=== PATIENT | female | born 1990 | race African-American/Black ===

== ENCOUNTER 2017-04-26 23:25 | Emergency (ER) | payer OTHER ==
[2017-04-26] MEDS ORDERED: DICYCLOMINE HCL 10 MG CAPSULE PO ONE (23:50)
--- NOTE | 2017-04-26 23:50 | PDOC ---
History of Present Illness - History of Present Illness Initial Comments: 04/26/17 23:53 The patient is a 27 year old female, with a significant past medical history of asthma, who presents to the emergency department with sudden onset of diffuse abdominal pain today. She reports the pain was 10/10 just prior to her ED arrival. She reports the pain was so bad I could not walk. She states the pain now is 2/10. She denies sick contacts. She reports eating all day without any complaints. LMP: 04/10/17 She denies chest pain, shortness of breath, headache and dizziness. She denies fever, chills, nausea, vomit, diarrhea and constipation. She denies dysuria, frequency, urgency and hematuria. Allergies: NKDA Past surgical history: umbilical hernia repair, ectopic Social history: denies toxic habits PCP - Dr. Maritza Palencia <Jyothi Bashir - Last Filed: 04/26/17 23:53> - General History Source: Patient <Alvin Lerner - Last Filed: 04/27/17 19:30> - General Chief Complaint: Pain, Acute Stated Complaint: ABDOMINAL PAIN Time Seen by Provider: 04/26/17 23:47 Past History <Jyothi Bashir - Last Filed: 04/26/17 23:53> - Past Medical History Asthma: Yes - Suicide/Smoking/Psychosocial Hx Smoking History: Never smoked Have you smoked in the past 12 months: No Number of Cigarettes Smoked Daily: 4 Information on smoking cessation initiated: No Hx Alcohol Use: No Drug/Substance Use Hx: No Substance Use Type: None <Alvin Lerner - Last Filed: 04/27/17 19:30> - Past Medical History Allergies/Adverse Reactions: Allergies Allergy/AdvReac Type Severity Reaction Status Date / Time No Known Allergies Allergy Verified 04/26/17 23:30 Home Medications: Ambulatory Orders NK [No Known Home Medication] 04/26/17 Review of Systems - Review of Systems Able to Perform ROS?: Yes Comments:: 04/26/17 23:54 CONSTITUTIONAL: Absent: fever, chills, diaphoresis, generalized weakness, malaise, loss of appetite HEENT: Absent: rhinorrhea, nasal congestion, throat pain, throat swelling, difficulty swallowing, mouth swelling, ear pain, eye pain, visual Changes CARDIOVASCULAR: Absent: chest pain, syncope, palpitations, irregular heart rate, lightheadedness , peripheral edema RESPIRATORY: Absent: cough, shortness of breath, dyspnea with exertion, orthopnea, wheezing, stridor, hemoptysis GASTROINTESTINAL: (+) abdominal pain, Absent: abdominal distension, nausea, vomiting, diarrhea, constipation, melena, hematochezia GENITOURINARY: Absent: dysuria, frequency, urgency, hesitancy, hematuria, flank pain, genital pain MUSCULOSKELETAL: Absent: myalgia, arthralgia, joint swelling SKIN: Absent: rash, itching, pallor HEMATOLOGIC/IMMUNOLOGIC: Absent: easy bleeding, easy bruising, lymphadenopathy, frequent infections ENDOCRINE: Absent: unexplained weight gain, unexplained weight loss, heat intolerance, cold intolerance NEUROLOGIC: Absent: headache, focal weakness or paresthesias, dizziness, unsteady gait, seizure, mental status changes, bladder or bowel incontinence PSYCHIATRIC: Absent: anxiety, depression, suicidal or homicidal ideation, hallucinations. <Jyothi Bashir - Last Filed: 04/26/17 23:53> *Physical Exam - Vital Signs Last Vital Signs Temp Pulse Resp BP Pulse Ox 97.6 F 64 18 128/78 98 04/26/17 23:30 04/26/17 23:30 04/26/17 23:30 04/26/17 23:30 04/26/17 23:30 - Physical Exam Comments: 04/26/17 23:54 GENERAL: Well developed, well nourished. Awake and alert. No acute distress. HEENT: Normocephalic, atraumatic. PERRLA, EOMI. No conjunctival pallor. Sclera are non- icteric. Moist mucous membranes. Oropharynx is clear. NECK: Supple. Full ROM. No JVD. Carotid pulses 2+ and symmetric, without bruits. No thyromegaly. No lymphadenopathy. CARDIOVASCULAR: Regular rate and rhythm. No murmurs, rubs, or gallops. Distal pulses are 2+ and symmetric. PULMONARY: No evidence of respiratory distress. Lungs clear to auscultation bilaterally. No wheezing, rales or rhonchi. ABDOMINAL: Soft. Non-tender. Non-distended. No rebound or guarding. No organomegaly. Normoactive bowel sounds. MUSCULOSKELETAL Normal range of motion at all joints. No bony deformities or tenderness. No CVA tenderness. EXTREMITIES: No cyanosis. No clubbing. No edema. No calf tenderness. SKIN: Warm and dry. Normal capillary refill. No rashes. No jaundice. NEUROLOGICAL: Alert, awake, appropriate. Cranial nerves 2-12 intact. Normoreflexic in the upper and lower extremities. Normal speech. Toes are down-going bilaterally. Gait is normal without ataxia. PSYCHIATRIC: Cooperative. Good eye contact. Appropriate mood and affect. <Jyothi Bashir - Last Filed: 04/26/17 23:53> - Vital Signs Last Vital Signs Temp Pulse Resp BP Pulse Ox 97.6 F 64 18 128/78 98 04/26/17 23:30 04/26/17 23:30 04/26/17 23:30 04/26/17 23:30 04/26/17 23:30 <Alvin Lerner - Last Filed: 04/27/17 19:30> Medical Decision Making - Medical Decision Making 04/27/17 19:29 Dr. Lerner: The scribe's documentation has been prepared under my direction and personally reviewed by me in its entirery. I confirm that the note above accurately reflects all work, treatment, procedures, and medical decision making performed by me. <Alvin Lerner - Last Filed: 04/27/17 19:30> *DC/Admit/Observation/Transfer - Attestations Scribe Attestion: 04/26/17 23:55 Documentation prepared by Jyothi Bashir, acting as rn medical surgical for Alvin Lerner DO <Jyothi Bashir - Last Filed: 04/26/17 23:53> - Discharge Dispostion Admit: No <Alvin Lerner - Last Filed: 04/27/17 19:30> Diagnosis at time of Disposition: Abdominal pain Qualifiers: Abdominal location: generalized Qualified Code(s): R10.84 - Generalized abdominal pain - Discharge Dispostion Disposition: HOME Condition at time of disposition: Stable - Referrals Referrals: Maritza Palencia MD [Primary Care Provider] - Savage Oreilly MD [Staff Physician] - - Patient Instructions Printed Discharge Instructions: DI for Abdominal Pain-Adult - Post Discharge Activity
[2017-04-26] MEDS ORDERED: DICYCLOMINE HCL 10 MG CAPSULE ONE (23:56)
[2017-04-27 00:19] VITALS: BP 128/78; PULSE 64; TEMP 97.6; BMI 32.5
== END 2017-04-27 01:51 | disposition home or self-care (01) ==
LOC: JER 23:25
DX: R10.84 Generalized abdominal pain (principal)
CPT/HCPCS: 99282-25

== ENCOUNTER 2018-05-02 05:11 | Day surgery (SDC) | payer OTHER ==
[2018-04-30 15:06] VITALS: BMI 34.8
[2018-05-02] MEDS ORDERED: ONDANSETRON 4 MG/2 ML VIAL IVPUSH PRN (10:09)
[2018-05-02] MEDS ORDERED: PROMETHAZINE HCL 25 MG/1 ML VIAL IVPUSH PRN (10:09)
[2018-05-02] MEDS ORDERED: LACTATED RINGERS SOLUTION 1,000 ML IV SCH (10:15)
--- NOTE | 2018-05-02 10:19 | HP ---
History & Physical Update - History History: No Change - Physical Physical: No Change - Assessment Assessment: No Change - Plan Plan: No Change (Dermoid cyst, for laparoscopic ovarian cystectomy, agree with H &P from 04/30/2018)
[2018-05-02] MEDS ORDERED: IBUPROFEN 800 MG/8 ML IJ IVPB PRN (10:21)
[2018-05-02] MEDS ORDERED: ACETAMINOPHEN 325 MG TABLET (FP) PO PRN (10:21)
[2018-05-02] MEDS ORDERED: MIDAZOLAM HCL 2 MG/2 ML SINGLE DOSE VIAL ONE ×2 (10:51)
[2018-05-02] MEDS ORDERED: BUPIVACAINE HCL/PF 0.5% (5MG/ML) 10 ML VIAL ONE (10:52)
[2018-05-02] MEDS ORDERED: PROPOFOL 20 ML ONE (10:58)
[2018-05-02] MEDS ORDERED: ROCURONIUM BROMIDE 50 MG/5 ML VIAL ONE (11:00)
[2018-05-02] MEDS ORDERED: BUPIVACAINE HCL/PF (5 MG/ML) 30 ML VIAL IJ ONE ×2 (11:48)
[2018-05-02] MEDS ORDERED: NEOSTIGMINE METHYLSULFATE 0.5 MG/ML - 10 ML MDV ONE (11:54)
[2018-05-02] MEDS ORDERED: ACETAMINOPHEN 1000 MG/100 ML VIAL (NON FORMULARY) IVPB ONE (12:00)
--- NOTE | 2018-05-02 12:12 | SURG ---
Surgery Planting Machine Crewman Note Planting Machine Crewman: Joaquin Luna PA-C Date of Service: 05/02/18 Diagnosis: Left ovarian dermoid cyst Procedure: Laprscopic Left ovarian cystectomy I was present for the entirety of the operative procedure. For further detail, please refer to operative report.
[2018-05-02] MEDS ORDERED: ACETAMINOPHEN INJECTION 100 ML IVPB ONE (12:22)
--- NOTE | 2018-05-02 12:34 | OP ---
Operative Note - Note: Operative Date: 05/02/18 (dictation [id number]) Pre-Operative Diagnosis: left dermoid cyst Operation: laparoscopic left ovarian cystectomy Findings: left ovarian cyst, normal right ovary Post-Operative Diagnosis: Same as Pre-op Surgeon: Cherie Hutchins Skein Bander: Joaquin Luna Anesthesiologist/TOOLROOM KEEPER: Dia Colmenares MD Anesthesia: General Specimens Removed: left ovarian cyst Estimated Blood Loss (mls): 10 Operative Report Dictated: Yes
[2018-05-02 13:51] VITALS: BP 108/68; PULSE 60; TEMP 97.4
--- NOTE | 2018-05-02 14:04 | OP ---
DATE OF OPERATION: 05/02/2018 PREOPERATIVE DIAGNOSIS: Left dermoid cyst. POSTOPERATIVE DIAGNOSIS: Left dermoid cyst. PROCEDURE: Laparoscopic ovarian cystectomy. SURGEON: Cherie Hutchins MD TRAVELER CHANGER: PHOEBE Robin ANESTHESIA: General. ANESTHESIOLOGIST: Dia Colmenares MD ESTIMATED BLOOD LOSS: 10 mL. SPECIMENS REMOVED: Left dermoid cyst. COMPLICATIONS: None. COUNTS: Sponge, needle, and instrument counts correct. DISPOSITION: Stable to PACU. BRIEF HISTORY AND PROCEDURE: Patient is a 28-year-old female having been seen in the office and diagnosed with a left-sided dermoid cyst. The patient was counseled on her options and elected to undergo resection. She signed consents for laparoscopic ovarian cystectomy in the office and was admitted to [facility] on May 02, 2018, where consents were reconfirmed. She was then taken back to the operating room, where she was given general anesthesia and placed in the dorsal lithotomy position. A Stone catheter was placed under sterile conditions. She was prepped and draped in the usual standard fashion, and a hard time-out was performed. A 5-mm skin incision was created in the umbilicus, and a Veress needle was placed intraabdominally, and the abdomen insufflated with CO2 gas. The camera was then inserted using an optical trocar and confirmation of intraabdominal placement was completed. Two bilateral lower quadrant trocars were placed, a 5-mm on the left and a 10-mm on the right, under direct visualization. The left ovary was examined and found to have dermoid cysts. The right ovary appeared to be normal. Bilateral tubes appeared to be within normal limits. The left ovary was elevated. An incision was made over the area of the dermoid cyst. The cyst contents were spilling after incision, and copious suction and irrigation removed the fat and hair-like tissue from the ovarian cyst at this time. The cyst wall was then identified and peeled away bluntly from the remaining ovarian tissue. This was done without difficulty. The contents of the cyst and cyst wall were sent to Pathology for reevaluation. Excellent hemostasis was noted after examination of the surgical site. Copious irrigation of the abdomen and pelvis was completed to remove all portions of the cyst contents. The 10-mm trocar site was closed with a Kev-Cisco device using 0 Vicryl suture under direct visualization to close the fascial incision. The other 2 trocars were removed under direct visualization, and the abdomen was desufflated. The skin was reapproximated using 0 Biosyn and skin glue, and the Stone catheter was removed. The patient was awoken from anesthesia, recovering in stable condition at the time of this dictation. CHERIE HUTCHINS DO /[id number]
--- NOTE | 2018-05-03 18:03 | PATH ---
Surgical Pathology Report Patient Name: JENNIFER ZAMAN [facility]. Rec. #: [id number] /Age/Gender: 1990 (Age: 28) / F Account: [id number] Location: AMBULATORY SURG Taken: 05/02/2018 Received: 05/02/2018 Reported: 05/03/2018 Physicians: Cherie Hutchins M.D. Specimen(s) Received LEFT DERMOID CYST Clinical History Left ovarian cyst Final Diagnosis DERMOID CYST, LEFT, LAPAROSCOPIC OVARIAN CYSTECTOMY: MATURE CYSTIC TERATOMA. Electronically Signed Meenakshi Morel M.D. Gross Description Received in formalin labeled "left dermoid cyst," is a 3.1 x 1.6 x 0.8 cm focally disrupted cyst. The outer surface is pack-pink and smooth. Sectioning reveals possible sebaceous material within lumen. The specimen is serially sectioned and entirely submitted in 2 cassettes. /05/02/2018 saudi/05/02/2018
== END 2018-05-02 18:10 | disposition home or self-care (01) ==
LOC: JASUSAT 05:11
PROVIDERS: ATTEND Obstetrics & Gynecology
PROC: 0UB14ZZ Excision of Left Ovary, Percutaneous Endoscopic Approach (ICD-10-PCS; principal; 2018-05-02 10:00)
DX: D27.1 Benign neoplasm of left ovary (principal)
CPT/HCPCS: 84703; 86850; 86900; 86901; 88307-TC; 94760; J0131

== ENCOUNTER 2020-09-01 07:44 | Emergency (ER) | payer OTHER ==
[2020-09-01 07:55] VITALS: BP 114/72; PULSE 76; TEMP 98.4; BMI 36.0
== END 2020-09-01 09:07 | disposition home or self-care (01) ==
LOC: JCOVINFU 07:44
DX: R09.89 Other specified symptoms and signs involving the circulatory and respiratory systems (principal)
CPT/HCPCS: 99282-25